=== PATIENT | female | born 1945 | race Caucasian/White ===

== ENCOUNTER 2024-08-23 17:45 | Emergency (ER) | payer MEDICARE ==
[~2024-08-23] VITALS: Ht 165.1 cm; Wt 56.2 kg
[2024-08-23] MEDS ORDERED: IOHEXOL 350 100 ML INFUS..BTL ONE (18:52)
[2024-08-23] MEDS ORDERED: SWABABLE VALVE TRANSFER SET EA MC ONE (18:52)
[2024-08-23] MEDS ORDERED: IV NORMAL SALINE 250 ML IV ONE (18:52)
[2024-08-23 18:58] LABS: BASOPHILS % (AUTO) 0.5 % (0.0-2.0); EOSINOPHILS # (AUTO) 0.1 K/uL (0.0-0.7); EOSINOPHILS % (AUTO) 1.9 % (0.0-7.0); HEMATOCRIT 39.4 % (31.2-41.9); HEMOGLOBIN 12.9 g/dL (10.9-14.3); LYMPHOCYTES # (AUTO) 1.8 K/uL (0.8-4.8); LYMPHOCYTES % (AUTO) 30.1 % (20.5-51.5); MEAN CORPUSCULAR HEMOGLOBIN 28.1 uug (24.7-32.8); MEAN CORPUSCULAR HGB CONC 33 g/dL (32.3-35.6); MEAN CORPUSCULAR VOLUME 85.8 fL (75.5-95.3); MONOCYTES # (AUTO) 0.5 K/uL (0.1-1.30); MONOCYTES % (AUTO) 8.4 % (0.0-11.0); NEUTROPHILS # (AUTO) 3.6 K/uL (1.8-8.9); NEUTROPHILS % (AUTO) 59.1 % (38.5-71.5); PLATELET COUNT (AUTO) 183 K/uL (179-408); RED BLOOD CELL COUNT(AUTO) 4.59 MIL/uL (3.63-4.92); RED CELL DISTRIBUTION WIDTH 14.6 % (12.3-17.7); WHITE BLOOD COUNT (AUTO) 6.1 K/uL (3.8-11.8)
[2024-08-23 18:59] LABS: DIFFERENTIAL COMMENT 1
[2024-08-23] MEDS ORDERED: MECLIZINE HCL 25 MG TABLET ONE (19:05)
[2024-08-23] MEDS ORDERED: METOCLOPRAMIDE HCL 10 MG/2 ML VIAL ONE (19:05)
[2024-08-23 19:10] LABS: ALANINE AMINOTRANSFERASE 24 U/L (14-59); ALBUMIN 3.5 g/dL (3.4-5.0); ALKALINE PHOSPHATASE 84 U/L (50-136); ASPARTATE AMINOTRANSFERASE 23 U/L (15-37); BILIRUBIN,DIRECT 0.1 mg/dL (0.0-0.2); BILIRUBIN,TOTAL 0.2 mg/dL (0.2-1.0); CALCIUM 9.3 mg/dL (8.5-10.1); CARBON DIOXIDE 29 mmol/L (21-32); CHLORIDE 104 mmol/L (98-107); CREATININE 0.7 mg/dL (0.6-1.3); GLUCOSE 132 mg/dL (74-106); POTASSIUM 3.9 mmol/L (3.5-5.1); SODIUM SERUM 140 mmol/L (136-145); TOTAL PROTEIN, SERUM 6.7 g/dL (6.4-8.2); UREA NITROGEN, BLOOD 32 mg/dL (7-18)
[2024-08-23] MEDS: METOCLOPRAMIDE HCL 10 MG/2 ML VIAL IV ONE (19:10)
[2024-08-23] MEDS: MECLIZINE HCL 25 MG TABLET PO ONE (19:10)
[2024-08-23] MEDS ORDERED: TENECTEPLASE 50 MG KIT IVP ONE (19:27)
[2024-08-23] MEDS: TENECTEPLASE 50 MG KIT IVP ONE (19:41)
[2024-08-23 20:53] VITALS: O2SAT 96
== END 2024-08-23 21:55 | disposition short-term general hospital (02) ==
LOC: ER 17:45
DX: I63.9 Cerebral infarction, unspecified (principal); R53.1 Weakness; E03.9 Hypothyroidism, unspecified; E78.5 Hyperlipidemia, unspecified; I10 Essential (primary) hypertension
CPT/HCPCS: 99291; 70450; 96374; 96375; 80076; 80048; 84443; 85025; 85730; 84484; 36415; 70496; 70498; 93005; J3101; J2765; Q9967; A4606; A4663; J8597